=== PATIENT | female | born 1930 | race Caucasian/White ===

== ENCOUNTER 2019-10-20 17:34 | Emergency (ER) | payer MEDICARE ==
--- NOTE | 2019-10-20 17:44 | ED ---
Dizziness - HPI Summary HPI Summary: 89 year old F presenting to [facility] via EMS with a chief complaint of dizziness which she describes as blurry vision and double vision that lasted hours since earlier today. The patient rates the pain 0/10 in severity. Symptoms aggravated by nothing. Symptoms alleviated by nothing. Patient reports that she went to sleep and woke up with dizziness. Patient denies any weakness, numbness, chest pain, or tingling. Medication list reviewed. Allergy list reviewed. Home Medications Medication Instructions Recorded Confirmed Type Acetaminophen [Tylenol] 500 mg PO PRN 08/11/12 05/23/14 History Calcium Carbonate/Vitamin D3 1 tab PO QAM 08/11/12 04/13/16 History [Calcium + D] Quinapril HCl 10 mg PO BEDTIME 08/11/12 04/13/16 History Sotalol TAB* [Betapace*] 80 mg PO BID 08/11/12 05/23/14 History Warfarin TAB(*) [Coumadin(*)] 2.5 mg PO SUMOWEFR 08/11/12 05/23/14 History Warfarin TAB(*) [Coumadin(*)] 5 mg PO TUTHSA 08/11/12 04/13/16 History Cyanocobalamin [Vitamin B-12] 500 mcg PO SEE INSTRUCTIONS 04/13/16 04/13/16 History - History Of Current Complaint Stated Complaint: DIZZYNESS PER EMS Time Seen by Provider: 10/20/19 17:37 Hx Obtained From: Patient, EMS Onset/Duration: Suddenly Timing: Constant Character: Dizzy Aggravating Factor(s): Nothing Alleviating Factor(s): Nothing Associated Signs And Symptoms: Positive: Negative - Weakness, numbness, tingling , Other: - Blurry vision, double vision. Negative: Chest Pain - Allergies/Home Medications Allergies/Adverse Reactions: Allergies Allergy/AdvReac Type Severity Reaction Status Date / Time No Known Allergies Allergy Verified 04/13/16 10:31 Home Medications: Home Medications Acetaminophen [Tylenol] 500 mg PO PRN 08/11/12 [History Confirmed 05/23/14] Calcium Carbonate/Vitamin D3 [Calcium + D] 1 tab PO QAM 08/11/12 [History Confirmed 04/13/16] Quinapril HCl 10 mg PO BEDTIME 08/11/12 [History Confirmed 04/13/16] Sotalol TAB* [Betapace*] 80 mg PO BID 08/11/12 [History Confirmed 05/23/14] Warfarin TAB(*) [Coumadin(*)] 2.5 mg PO SUMOWEFR 08/11/12 [History Confirmed ] Warfarin TAB(*) [Coumadin(*)] 5 mg PO TUTHSA 08/11/12 [History Confirmed ] Cyanocobalamin [Vitamin B-12] 500 mcg PO SEE INSTRUCTIONS 04/13/16 [History Confirmed 04/13/16] PMH/Surg Hx/FS Hx/Imm Hx Endocrine/Hematology History: Denies: Hx Diabetes Cardiovascular History: Reports: Hx Hypertension - medication used for many years, BP well controlled, Hx Pacemaker/ICD - PACER AND DEFIB, 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 2005 TOTAL KNEE CAP INSPECTOR. 2009 CATARACTS CAP INSPECTOR. BASAL CELL CAP INSPECTOR AND STRONG Hx Anesthesia Reactions: No - Family History Known Family History: Negative: Hypertension, Diabetes - Social History Alcohol Use: None Substance Use Type: Reports: None Hx Tobacco Use: No Smoking Status (MU): Never Smoked Tobacco Review of Systems Positive: Blurred Vision, Other - Double vision Negative: Chest Pain Neurological/Mental Status: Other - Dizziness Negative: Weakness, Paresthesia, Numbness All Other Systems Reviewed And Are Negative: Yes Physical Exam - Summary Physical Exam Summary: Constitutional: Well-developed, Well-nourished, Alert. 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 Neck: Musculoskeletal ROM normal neck. (-) JVD, (-) Stridor, (-) Tracheal deviation Cardio: Rhythm regular, rate normal, Heart sounds normal; Intact distal pulses; Radial pulses are 2+ and symmetric. (-) Murmur Pulmonary/Chest wall: Effort normal. (-) Respiratory distress, (-) Wheezes, (-) Rales Abd: Soft, (-) tenderness, (-) Distension, (-) Guarding, (-) Rebound Musculoskeletal: (-) Edema Lymph: (-) Cervical adenopathy Neuro: Alert, Oriented x3 Psych: Mood and affect Normal Triage Information Reviewed: Yes Vital Signs Reviewed: Yes Procedures - Sedation Patient Received Moderate/Deep Sedation with Procedure: No Diagnostics - Laboratory Result Diagrams: 10/20/19 17:56 10/20/19 17:56 Lab Statement: Any lab studies that have been ordered have been reviewed, and results considered in the medical decision making process. - CT Brain CT CT Interpretation Completed By: Radiologist Summary of CT Findings: 1. There is age-related diffuse cerebral and cerebellar volume loss and chronic. microvascular ischemic disease. There is a small focus of encephalomalacia in. the left frontal lobe consistent with chronic infarct. 2. No acute intracranial pathology. ED physician has reviewed this report. - EKG 18:01 Cardiac Rate: NL - 94 BPM Summary of EKG Findings: Paced rhythm, no obvious abnormalities. ED physician has reviewed and interpreted this EKG. Re-Evaluation - Re-Evaluation First Eval Re-Evaluation Time: 18:35 Change: Improved Comment: After 1 dose of Labetalol the patient's blood pressure is 170/95. Dizzy Course/Dx - Course Course Of Treatment: Patient is here with elevated blood pressure and symptoms of dizziness. Patient states she feels much better by the time she got to the emergency department. Patient had a normal neurologic exam with an NIH stroke scale of 0. Patient had blood work performed which is grossly unremarkable. Patient had an EKG which showed no evidence of ischemia. Patient's CT brain which was negative for any abnormality. The patient describes her symptoms, she describes binocular vision which improves when she closes one eye. Patient is likely suffering from an intrinsic eye issue and was referred to ophthalmology. She was given 1 dose of labetalol to improvement in her blood pressure. Patient will follow up with her primary care doctor for blood pressure recheck and possible starting of medications. 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, Hypertension Discharge ED - Sign-Out/Discharge Documenting (check all that apply): Patient Departure - Discharge Plan Condition: Stable Disposition: HOME Patient Education Materials: Diplopia (ED), Hypertension in the Older Adult (ED ) Referrals: Chava Engle MD [Medical Doctor] - Neyda Gold MD [Primary Care Provider] - Additional Instructions: You need to have your blood pressure rechecked within 1 week to see if you need to start medicine Please follow up with your primary care doctor in 1-3 days Please call the seed buyer to set up an appointment Please return if you have one sided weakness, difficulty walking, one sided numbness, your face appears to be drooping, you have slurred speech, or any other concerning symptoms - Billing Disposition and Condition Condition: STABLE Disposition: Home - Attestation Statements Document Initiated by Nadir: Yes Documenting Scribe: Lily Mosqueda Provider For Whom Nadir is Documenting (Include Credential): Gaurav Garcia MD Scribe Attestation: Lily Wyatt scribed for Gaurav Garcia MD on 10/20/19 at 1848. Scribe Documentation Reviewed: Yes Provider Attestation: The documentation as recorded by the Lily valenzuela accurately reflects the service I personally performed and the decisions made by me, Gaurav Garcia MD Status of Scribe Document: Viewed
[2019-10-20] MEDS ORDERED: Labetalol IV* 5 MG/ML 20 ML VIAL IV PUSH ONE (17:47)
[2019-10-20 18:14] LABS: ABS Basophils 0.1 10^3/ul (0-0.2); ABS Eosinophils 0.3 10^3/ul (0-0.6); ABS Lymphocytes 1.4 10^3/ul (1.0-4.8); ABS Monocytes 0.6 10^3/ul (0-0.8); Eosinophil % 3.7 %; Hematocrit 41 % (35-47); Hemoglobin 14.4 g/dL (12.0-16.0); Lymphocyte % 16.4 %; Mean Corpuscular HGB Conc 35 g/dL (31-36); Mean Corpuscular Hemoglobin 32 pg (27-31); Mean Corpuscular Volume 92 fL (80-97); Mean Platelet Volume 8.1 fL (7.4-10.4); Platelet Count 171 10^3/uL (150-450); Red Blood Count 4.48 10^6 /uL (3.70-4.87); Red Cell Distribution Width 14 % (10-15); White Blood Count 8.3 10^3/uL (3.5-10.8)
--- OUTSIDE RECORDS SUMMARY | 2019-10-20 18:14 | XMS REPORT | Continuity of Care Document ---
:1930 External Reference #:[id number] Author Name [facility] (transmitted by agent of provider Claudia Pinon) Address [address] [id number] Problems Description No Information Available Social History Type Date Description Comments Sex Unknown Allergies, Adverse Reactions, Alerts Description No Known Drug Allergies Medications Active Medications SIG Qnty Indications Ordering Date Provider Shingrix Take one Z11.59 Phillip 07/28/2019 injection MD Latoya intramuscularly, repeat in two months. Warfarin Sodium 1 tab by mouth 90tabs Z95.2 Phillip 07/28/2019 2.5mg every day as MD Latoya Tablets directed Diclofenac Sodium apply 4 grams to 200gm Shannon Tadeo, 04/19/2018 1% knees 4 times SCREW DOWN Gel daily. do not exceed 16 grams daily. Warfarin Sodium 1 tab by mouth 90tabs Phillip 5mg every day MD Latoya Tablets Sotalol HCL 1 tablet by mouth 180tabs Phillip 80mg twice daily MD Latoya Tablets Quinapril HCL Take One Tablet 90tabs Shannon Piedra, 10mg By Mouth Every SCREW DOWN Tablets Day Citracal +D3 1 by mouth every 180units Unknown day [id number] t Chewtabs Ipratropium Drumore spray one to two 30units Shannon Piedra, sprays in both SCREW DOWN 0.03% Solution nostrils three times a day as needed Align 1 by mouth every Unknown 4mg Capsules day as directed Biotin 10,000mcg 1 po daily Unknown Tylenol Extra 2 tab by mouth Unknown Strength every 6 hours as 500mg needed Tablets Medications Administered in Office Medication SIG Qnty Indications Ordering Provider Date Injection, Depo-Medrol 40MG Phillip Klein MD 07/28/2019 Injection Immunizations CPT Code Status Date Vaccine Lot # [id number] Given 04/13/2019 Influenza Vaccine High Dose PF [id number] Given 04/11/2018 Influenza Vaccine High Dose PF Vital Signs Date Vital Result Comment 07/28/2019 11:51am Weight 112.00 lb Weight 50.803 kg BP Systolic 110 mmHg BP Diastolic 60 mmHg Heart Rate 56 /min Body Temperature 97.7 F Respiratory Rate 20 /min 11/23/2018 9:28am Weight 110.12 lb Weight 49.953 kg BP Systolic 114 mmHg BP Diastolic 60 mmHg Heart Rate 74 /min Body Temperature 97.4 F Respiratory Rate 16 /min Height 59 inches 4'11" BMI (Body Mass Index) 22.2 kg/m2 O2 % BldC Oximetry 98 % Results Test Acquired Date Facility Test Result H/L Range Note Inr/Protime 09/27/2019 [facility] Inr 3.06 High 0.82-1.09 7 [phone] Inr/Protime 09/21/2019 [facility] Inr 2.36 High 0.82-1.09 2 [phone] Inr/Protime 09/13/2019 [facility] Inr 2.61 High 0.82-1.09 3 [phone] Inr/Protime 09/06/2019 [facility] Inr 2.17 High 0.82-1.09 4 [phone] Inr/Protime 08/31/2019 [facility] Inr 2.04 High 0.82-1.09 5 [phone] Inr/Protime 08/23/2019 [facility] Inr 2.69 High 0.82-1.09 6 [phone] Inr/Protime 08/17/2019 [facility] Inr 4.23 High 0.82-1.09 7 [phone] Inr/Protime 08/09/2019 [facility] Inr 4.13 High 0.82-1.09 8 [phone] Urine DIP 07/28/2019 In House Lab Leukocytes neg Neg ([phone] - Urine Nitrites neg Neg Urobilinogen norm Norm Total Protein Urine neg Neg Urine pH 7 High 5-6 Urine Blood 1+ High Neg Specific [place] 1.010 1.01-1.02 Urine Ketones neg Neg Urine Bilirubin neg Neg Urine Glucose norm Norm Inr/Protime 07/28/2019 [facility] Inr 2.11 High 0.82-1.09 9 [phone] Inr/Protime 07/17/2019 [facility] Inr 3.72 High 0.82-1.09 10 [phone] Inr/Protime 06/20/2019 [facility] Inr 2.74 High 0.82-1.09 11 [phone] Inr/Protime 06/07/2019 [facility] Inr 2.72 High 0.82-1.09 12 [phone] Inr/Protime 05/31/2019 [facility] Inr 2.38 High 0.82-1.09 13 [phone] Inr/Protime 05/24/2019 [facility] Inr 2.26 High 0.82-1.09 14 [phone] Inr/Protime 05/18/2019 [facility] Inr 3.16 High 0.82-1.09 15 [phone] Inr/Protime 05/11/2019 [facility] Inr 1.81 High 0.82-1.09 16 [phone] Inr/Protime 05/04/2019 [facility] Inr 1.61 High 0.82-1.09 17 [phone] Inr/Protime 04/27/2019 [facility] Inr 1.86 High 0.82-1.09 18 [phone] Inr/Protime 04/13/2019 [facility] Inr 3.04 High 0.82-1.09 19 [phone] Standard intensity warfarin therapeutic range: 2.0-3.0 High intensity warfarin therapeutic range: 2.5-3.5 2 Standard intensity warfarin therapeutic range: 2.0-3.0 High intensity warfarin therapeutic range: 2.5-3.5 3 Standard intensity warfarin therapeutic range: 2.0-3.0 High intensity warfarin therapeutic range: 2.5-3.5 4 Standard intensity warfarin therapeutic range: 2.0-3.0 High intensity warfarin therapeutic range: 2.5-3.5 5 Standard intensity warfarin therapeutic range: 2.0-3.0 High intensity warfarin therapeutic range: 2.5-3.5 6 Standard intensity warfarin therapeutic range: 2.0-3.0 High intensity warfarin therapeutic range: 2.5-3.5 7 Standard intensity warfarin therapeutic range: 2.0-3.0 High intensity warfarin therapeutic range: 2.5-3.5 8 Standard intensity warfarin therapeutic range: 2.0-3.0 High intensity warfarin therapeutic range: 2.5-3.5 9 Standard intensity warfarin therapeutic range: 2.0-3.0 High intensity warfarin therapeutic range: 2.5-3.5 10 Standard intensity warfarin therapeutic range: 2.0-3.0 High intensity warfarin therapeutic range: 2.5-3.5 11 Standard intensity warfarin therapeutic range: 2.0-3.0 High intensity warfarin therapeutic range: 2.5-3.5 12 Standard intensity warfarin therapeutic range: 2.0-3.0 High intensity warfarin therapeutic range: 2.5-3.5 13 Standard intensity warfarin therapeutic range: 2.0-3.0 High intensity warfarin therapeutic range: 2.5-3.5 14 Standard intensity warfarin therapeutic range: 2.0-3.0 High intensity warfarin therapeutic range: 2.5-3.5 15 Standard intensity warfarin therapeutic range: 2.0-3.0 High intensity warfarin therapeutic range: 2.5-3.5 16 Standard intensity warfarin therapeutic range: 2.0-3.0 High intensity warfarin therapeutic range: 2.5-3.5 17 Standard intensity warfarin therapeutic range: 2.0-3.0 High intensity warfarin therapeutic range: 2.5-3.5 18 Standard intensity warfarin therapeutic range: 2.0-3.0 High intensity warfarin therapeutic range: 2.5-3.5 19 Standard intensity warfarin therapeutic range: 2.0-3.0 High intensity warfarin therapeutic range: 2.5-3.5 Procedures Date Code Description Status 09/27/2019 88620 Anticoagulant MGMT For Patient Taking Warfarin, Inc Review Completed & Intr 09/21/2019 06389 Anticoagulant MGMT For Patient Taking Warfarin, Inc Review Completed & Intr 09/13/2019 61225 Anticoagulant MGMT For Patient Taking Warfarin, Inc Review Completed & Intr 08/31/2019 58159 Anticoagulant MGMT For Patient Taking Warfarin, Inc Review Completed & Intr 08/23/2019 07600 Anticoagulant MGMT For Patient Taking Warfarin, Inc Review Completed & Intr 08/17/2019 34491 Anticoagulant MGMT For Patient Taking Warfarin, Inc Review Completed & Intr 08/09/2019 28252 Anticoagulant MGMT For Patient Taking Warfarin, Inc Review Completed & Intr 07/28/2019 90369 Aspiration/Injection Intermediate Joint, Bursa, Ganglion Completed Cyst 07/17/2019 51621 Anticoagulant MGMT For Patient Taking Warfarin, Inc Review Completed & Intr 06/20/2019 42695 Anticoagulant MGMT For Patient Taking Warfarin, Inc Review Completed & Intr 06/07/2019 81834 Anticoagulant MGMT For Patient Taking Warfarin, Inc Review Completed & Intr 05/31/2019 42910 Anticoagulant MGMT For Patient Taking Warfarin, Inc Review Completed & Intr 05/24/2019 24751 Anticoagulant MGMT For Patient Taking Warfarin, Inc Review Completed & Intr 05/18/2019 49471 Anticoagulant MGMT For Patient Taking Warfarin, Inc Review Completed & Intr 05/11/2019 19063 Anticoagulant MGMT For Patient Taking Warfarin, Inc Review Completed & Intr 05/04/2019 64366 Anticoagulant MGMT For Patient Taking Warfarin, Inc Review Completed & Intr 04/27/2019 98879 Anticoagulant MGMT For Patient Taking Warfarin, Inc Review Completed & Intr 04/13/2019 78287 Anticoagulant MGMT For Patient Taking Warfarin, Inc Review Completed & Intr Medical Devices Description No Information Available Encounters Type Date Location Provider Dx Diagnosis Office Visit 07/28/2019 Main Office Alida Valerio11.59 Encounter for 11:45a screening for other viral diseases Z95.2 Presence of prosthetic heart valve M70.62 Trochanteric bursitis, left hip 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 of other heart-valve replacement Assessments Date Code Description Provider 10/11/2019 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 of other heart-valve replacement [facility] 09/27/2019 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 of other heart-valve replacement Phillip Klein MD 09/27/2019 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 of other heart-valve replacement [facility] 09/21/2019 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 of other heart-valve replacement Phillip Klein MD 09/21/2019 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 of other heart-valve replacement [facility] 09/13/2019 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 of other heart-valve replacement Phillip Klein MD 09/13/2019 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 of other heart-valve replacement [facility] 09/06/2019 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 of other heart-valve replacement Phillip Klein MD 09/06/2019 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 of other heart-valve replacement [facility] 08/31/2019 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 of other heart-valve replacement Phillip Klein MD 08/31/2019 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 of other heart-valve replacement [facility] 08/23/2019 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 of other heart-valve replacement Phillip Klein MD 08/23/2019 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 of other heart-valve replacement [facility] 08/17/2019 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 of other heart-valve replacement Phillip Klein MD 08/17/2019 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 of other heart-valve replacement [facility] 08/09/2019 Z95.2 Presence of prosthetic heart valve Phillip Klein MD 08/09/2019 Z95.2 Presence of prosthetic heart valve [facility] 07/28/2019 Z11.59 Encounter for screening for other viral Phillip Klein MD diseases 07/28/2019 Z95.2 Presence of prosthetic heart valve Phillip Klein MD 07/28/2019 M70.62 Trochanteric bursitis, left hip Phillip Klein MD 07/28/2019 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 of other heart-valve replacement Phillip Klein MD 07/17/2019 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 of other heart-valve replacement Phillip Klein MD 07/17/2019 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 of other heart-valve replacement [facility] 06/20/2019 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 of other heart-valve replacement Phillip Klein MD 06/20/2019 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 of other heart-valve replacement [facility] 06/07/2019 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 of other heart-valve replacement Phillip Klein MD 06/07/2019 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 of other heart-valve replacement [facility] 05/31/2019 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 of other heart-valve replacement Phillip Klein MD 05/31/2019 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 of other heart-valve replacement [facility] 05/24/2019 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 of other heart-valve replacement Phillip Klein MD 05/18/2019 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 of other heart-valve replacement Phillip Klein MD 05/18/2019 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 of other heart-valve replacement [facility] 05/11/2019 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 of other heart-valve replacement Phillip Klein MD 05/11/2019 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 of other heart-valve replacement [facility] 05/04/2019 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 of other heart-valve replacement Phillip Klein MD 05/04/2019 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 of other heart-valve replacement [facility] 04/27/2019 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 of other heart-valve replacement Phillip Klein MD 04/27/2019 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 of other heart-valve replacement [facility] 04/13/2019 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 of other heart-valve replacement Phillip Klein MD 04/13/2019 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 of other heart-valve replacement [facility] 04/13/2019 Z23 Encounter for immunization Phillip Klein MD Plan of Treatment 07/28/2019 - Phillip Klein MDZ11.59 Encounter for screening for other viral diseasesNew Medication:Shingrix - Take one injection intramuscularly, repeat in two months.Comments:Wants shingrix. Provided with paper script.Z95.2 Presence of prosthetic heart valveNew Medication:Warfarin Sodium 2.5 mg - 1 tab by mouth every day as directedComments:INR check today. REfilled warfarin.M70.62 Trochanteric bursitis, left hipComments:Discussion of risks ( incl skin atrophy) and benefits. Injected L trochanteric bursa with 1 ml of 40 mg/ml depomedrol and 3 ml of lidocaine with epinephrine. Withdrew needle under negative pressure. Tolerated well.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 of other heart-valve replacement Functional Status Description No Information Available Mental Status Description No Information Available Referrals Description No Information Available
--- OUTSIDE RECORDS SUMMARY | 2019-10-20 18:14 | XMS REPORT | Continuity of Care Document ---
:1930 External Reference #:[id number] Author Name [facility] (transmitted by agent of provider Elodia Schwab) Address [address] [id number] Problems Description No Information Available Social History [...] Shannon Tadeo, 04/19/2018 1% knees 4 times SENIOR FINANCE MANAGER Gel daily. do not exceed 16 grams daily. Warfarin Sodium 1 tab by mouth 90tabs Phillip 5mg every day MD Latoya Tablets Sotalol HCL 1 tablet by mouth 180tabs Phillip 80mg twice daily MD Latoya Tablets Quinapril HCL Take One Tablet 90tabs Shannon Piedra, 10mg By Mouth Every SENIOR FINANCE MANAGER Tablets Day Citracal +D3 1 by mouth every 180units Unknown day [id number]-mg-Uni t Chewtabs Ipratropium [place] spray one to two 30units Shannon Piedra, sprays in both SENIOR FINANCE MANAGER 0.03% Solution nostrils three times a day [...] CPT Code Status Date Vaccine Lot # [id number] Given 04/13/2019 Influenza Vaccine High Dose PF [id number] Given 04/11/2018 Influenza Vaccine High Dose PF [...] Facility Test Result H/L Range Note Inr/Protime 10/11/2019 [facility] Inr 3.22 High 0.82-1.09 7 [phone] Inr/Protime 09/27/2019 [facility] Inr 3.06 High 0.82-1.09 2 [phone] Inr/Protime 09/21/2019 [facility] Inr 2.36 High 0.82-1.09 3 [phone] Inr/Protime 09/13/2019 [facility] Inr 2.61 High 0.82-1.09 4 [phone] Inr/Protime 09/06/2019 [facility] Inr 2.17 High 0.82-1.09 5 [phone] Inr/Protime 08/31/2019 [facility] Inr 2.04 High 0.82-1.09 6 [phone] Inr/Protime 08/23/2019 [facility] Inr 2.69 High 0.82-1.09 7 [phone] Inr/Protime 08/17/2019 [facility] Inr 4.23 High 0.82-1.09 8 [phone] Inr/Protime 08/09/2019 [facility] Inr 4.13 High 0.82-1.09 9 [phone] Urine DIP 07/28/2019 In House Lab Leukocytes neg Neg (607)- - Urine Nitrites neg Neg Urobilinogen norm Norm Total Protein Urine neg Neg Urine pH 7 High 5-6 Urine Blood 1+ High Neg Specific [place] 1.010 1.01-1.02 Urine Ketones neg Neg Urine Bilirubin neg Neg Urine Glucose norm Norm Inr/Protime 07/28/2019 [facility] Inr 2.11 High 0.82-1.09 10 [phone] Inr/Protime 07/17/2019 [facility] Inr 3.72 High 0.82-1.09 11 [phone] Inr/Protime 06/20/2019 [facility] Inr 2.74 High 0.82-1.09 12 [phone] Inr/Protime 06/07/2019 [facility] Inr 2.72 High 0.82-1.09 13 [phone] Inr/Protime 05/31/2019 [facility] Inr 2.38 High 0.82-1.09 14 [phone] Inr/Protime 05/24/2019 [facility] Inr 2.26 High 0.82-1.09 15 [phone] Inr/Protime 05/18/2019 [facility] Inr 3.16 High 0.82-1.09 16 [phone] Inr/Protime 05/11/2019 [facility] Inr 1.81 High 0.82-1.09 17 [phone] Inr/Protime 05/04/2019 [facility] Inr 1.61 High 0.82-1.09 18 [phone] Inr/Protime 04/27/2019 [facility] Inr 1.86 High 0.82-1.09 19 [phone] Standard intensity warfarin therapeutic range: 2.0-3.0 [...] range: 2.5-3.5 Procedures Date Code Description Status 10/11/2019 35715 Anticoagulant MGMT For Patient Taking Warfarin, Inc Review Completed & Intr 09/27/2019 88466 Anticoagulant MGMT For Patient Taking Warfarin, Inc Review Completed & Intr 09/21/2019 25472 Anticoagulant MGMT For Patient Taking Warfarin, Inc Review Completed & Intr 09/13/2019 13375 Anticoagulant MGMT For Patient Taking Warfarin, Inc Review Completed & Intr 08/31/2019 78877 Anticoagulant MGMT For Patient Taking Warfarin, Inc Review Completed & Intr 08/23/2019 77662 Anticoagulant MGMT For Patient Taking Warfarin, Inc Review Completed & Intr 08/17/2019 83977 Anticoagulant MGMT For Patient Taking Warfarin, Inc Review Completed & Intr 08/09/2019 62988 Anticoagulant MGMT For Patient Taking Warfarin, Inc Review Completed & Intr 07/28/2019 18234 Aspiration/Injection Intermediate Joint, Bursa, Ganglion Completed Cyst 07/17/2019 74630 Anticoagulant MGMT For Patient Taking Warfarin, Inc Review Completed & Intr 06/20/2019 18258 Anticoagulant MGMT For Patient Taking Warfarin, Inc Review Completed & Intr 06/07/2019 95570 Anticoagulant MGMT For Patient Taking Warfarin, Inc Review Completed & Intr 05/31/2019 53282 Anticoagulant MGMT For Patient Taking Warfarin, Inc Review Completed & Intr 05/24/2019 97349 Anticoagulant MGMT For Patient Taking Warfarin, Inc Review Completed & Intr 05/18/2019 79656 Anticoagulant MGMT For Patient Taking Warfarin, Inc Review Completed & Intr 05/11/2019 98230 Anticoagulant MGMT For Patient Taking Warfarin, Inc Review Completed & Intr 05/04/2019 84100 Anticoagulant MGMT For Patient Taking Warfarin, Inc Review Completed & Intr 04/27/2019 75151 Anticoagulant MGMT For Patient Taking Warfarin, Inc [...] 10/11/2019 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 of other heart-valve replacement Phillip Klein MD 10/11/2019 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 of other heart-valve replacement [...] other heart-valve replacement [facility] Plan of Treatment Future Appointment(s):10/25/2019 9:40 am - [facility] at Main Racnru2707/28/2019 - Phillip Klein MDZ11.59 Encounter for screening [...]
--- OUTSIDE RECORDS SUMMARY | 2019-10-20 18:15 | XMS REPORT | Continuity of Care Document ---
:1930 External Reference #:[id number] Author Name [facility] (transmitted by agent of provider Elodia Schwab) Address [address] [id number] Problems Description No Information Available Social History [...] Shannon Tadeo, 04/19/2018 1% knees 4 times SECRETARY RECEPTIONIST Gel daily. do not exceed 16 grams daily. Warfarin Sodium 1 tab by mouth 90tabs Phillip 5mg every day MD Latoya Tablets Sotalol HCL 1 tablet by mouth 180tabs Phillip 80mg twice daily MD Latoya Tablets Quinapril HCL Take One Tablet 90tabs Shannon Piedra, 10mg By Mouth Every SECRETARY RECEPTIONIST Tablets Day Citracal +D3 1 by mouth every 180units Unknown day [id number]-mg-Uni t Chewtabs Ipratropium [place] spray one to two 30units Shannon Piedra, sprays in both SECRETARY RECEPTIONIST 0.03% Solution nostrils three times a day [...] CPT Code Status Date Vaccine Lot # [id number] Given 04/13/2019 Influenza Vaccine High Dose PF [id number] Given 04/11/2018 Influenza Vaccine High Dose PF [...] Facility Test Result H/L Range Note Inr/Protime 09/21/2019 [facility] Inr 2.36 High 0.82-1.09 8 [phone] Inr/Protime 09/13/2019 [facility] Inr 2.61 High 0.82-1.09 2 [phone] Inr/Protime 09/06/2019 [facility] Inr 2.17 High 0.82-1.09 3 [phone] Inr/Protime 08/31/2019 [facility] Inr 2.04 High 0.82-1.09 4 [phone] Inr/Protime 08/23/2019 [facility] Inr 2.69 High 0.82-1.09 5 [phone] Inr/Protime 08/17/2019 [facility] Inr 4.23 High 0.82-1.09 6 [phone] Inr/Protime 08/09/2019 [facility] Inr 4.13 High 0.82-1.09 7 [phone] Inr/Protime 07/28/2019 [facility] Inr 2.11 High 0.82-1.09 8 [phone] Urine DIP 07/28/2019 In House Lab Leukocytes neg Neg (607)- - Urine Nitrites neg Neg Urobilinogen norm Norm Total Protein Urine neg Neg Urine pH 7 High 5-6 Urine Blood 1+ High Neg Specific [place] 1.010 1.01-1.02 Urine Ketones neg Neg Urine Bilirubin neg Neg Urine Glucose norm Norm Inr/Protime 07/17/2019 [facility] Inr 3.72 High 0.82-1.09 9 [phone] Inr/Protime 06/20/2019 [facility] Inr 2.74 High 0.82-1.09 10 [phone] Inr/Protime 06/07/2019 [facility] Inr 2.72 High 0.82-1.09 11 [phone] Inr/Protime 05/31/2019 [facility] Inr 2.38 High 0.82-1.09 12 [phone] Inr/Protime 05/24/2019 [facility] Inr 2.26 High 0.82-1.09 13 [phone] Inr/Protime 05/18/2019 [facility] Inr 3.16 High 0.82-1.09 14 [phone] Inr/Protime 05/11/2019 [facility] Inr 1.81 High 0.82-1.09 15 [phone] Inr/Protime 05/04/2019 [facility] Inr 1.61 High 0.82-1.09 16 [phone] Inr/Protime 04/27/2019 [facility] Inr 1.86 High 0.82-1.09 17 [phone] Inr/Protime 04/13/2019 [facility] Inr 3.04 High 0.82-1.09 18 [phone] Inr/Protime 04/06/2019 [facility] Inr 3.04 High 0.82-1.09 19 [phone] Inr/Protime 03/30/2019 [facility] Inr 3.25 High 0.82-1.09 20 [phone] Inr/Protime 03/23/2019 [facility] Inr 4.36 High 0.82-1.09 21 [phone] Standard intensity warfarin therapeutic range: 2.0-3.0 [...] 2.0-3.0 High intensity warfarin therapeutic range: 2.5-3.5 20 Standard intensity warfarin therapeutic range: 2.0-3.0 High intensity warfarin therapeutic range: 2.5-3.5 21 Standard intensity warfarin therapeutic range: 2.0-3.0 High intensity warfarin therapeutic range: 2.5-3.5 Procedures Date Code Description Status 09/21/2019 79029 Anticoagulant MGMT For Patient Taking Warfarin, Inc Review Completed & Intr 09/13/2019 47826 Anticoagulant MGMT For Patient Taking Warfarin, Inc Review Completed & Intr 08/31/2019 75681 Anticoagulant MGMT For Patient Taking Warfarin, Inc Review Completed & Intr 08/23/2019 36710 Anticoagulant MGMT For Patient Taking Warfarin, Inc Review Completed & Intr 08/17/2019 02855 Anticoagulant MGMT For Patient Taking Warfarin, Inc Review Completed & Intr 08/09/2019 31032 Anticoagulant MGMT For Patient Taking Warfarin, Inc Review Completed & Intr 07/28/2019 66770 Aspiration/Injection Intermediate Joint, Bursa, Ganglion Completed Cyst 07/17/2019 07318 Anticoagulant MGMT For Patient Taking Warfarin, Inc Review Completed & Intr 06/20/2019 40979 Anticoagulant MGMT For Patient Taking Warfarin, Inc Review Completed & Intr 06/07/2019 95397 Anticoagulant MGMT For Patient Taking Warfarin, Inc Review Completed & Intr 05/31/2019 84573 Anticoagulant MGMT For Patient Taking Warfarin, Inc Review Completed & Intr 05/24/2019 15583 Anticoagulant MGMT For Patient Taking Warfarin, Inc Review Completed & Intr 05/18/2019 19342 Anticoagulant MGMT For Patient Taking Warfarin, Inc Review Completed & Intr 05/11/2019 59419 Anticoagulant MGMT For Patient Taking Warfarin, Inc Review Completed & Intr 05/04/2019 20670 Anticoagulant MGMT For Patient Taking Warfarin, Inc Review Completed & Intr 04/27/2019 51350 Anticoagulant MGMT For Patient Taking Warfarin, Inc Review Completed & Intr 04/13/2019 58606 Anticoagulant MGMT For Patient Taking Warfarin, Inc Review Completed & Intr 04/06/2019 70427 Anticoagulant MGMT For Patient Taking Warfarin, Inc Review Completed & Intr 03/30/2019 51615 Anticoagulant MGMT For Patient Taking Warfarin, Inc Review Completed & Intr 03/23/2019 91777 Anticoagulant MGMT For Patient Taking Warfarin, Inc Review Completed & Intr Medical Devices Description No Information Available Encounters Type Date Location Provider Dx Diagnosis Office Visit 07/28/2019 Main Office Phillip Klein Z11.59 Encounter for 11:45a screening for other viral diseases Z95.2 Presence of prosthetic heart valve M70.62 Trochanteric bursitis, left hip 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 of other heart-valve replacement Assessments Date Code Description Provider 09/21/2019 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 of other heart-valve replacement [...] 06/07/2019 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 of other heart-valve replacement Pihllip Klein MD 06/07/2019 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 of other [...] and Office Services 04/13/2019 Z23 Encounter for adeel Klein MD 04/06/2019 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 of other heart-valve replacement Phillip Klein MD 04/06/2019 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 of other heart-valve replacement [facility] 03/30/2019 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 of other heart-valve replacement Phillip Klein MD 03/30/2019 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 of other heart-valve replacement [facility] 03/23/2019 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 of other heart-valve replacement Phillip Klein MD 03/23/2019 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 of other heart-valve replacement [facility] Plan of Treatment Future Appointment(s):09/27/2019 9:40 am - [facility] Main [place]5607/28/2019 - Phillip Klein MDZ11.59 Encounter for screening [...]
--- OUTSIDE RECORDS SUMMARY | 2019-10-20 18:15 | XMS REPORT | Continuity of Care Document ---
:1930 External Reference #:[id number] Author Name [facility] (transmitted by agent of provider Elodia Schwab) Address [address] [id number] Problems Description No Information Available Social History [...] Shannon Tadeo, 04/19/2018 1% knees 4 times ASSOCIATE PROFESSOR OF MATHEMATICS Gel daily. do not exceed 16 grams daily. Warfarin Sodium 1 tab by mouth 90tabs Phillip 5mg every day MD Latoya Tablets Sotalol HCL 1 tablet by mouth 180tabs Phillip 80mg twice daily MD Latoya Tablets Quinapril HCL Take One Tablet 90tabs Shannno Piedra, 10mg By Mouth Every ASSOCIATE PROFESSOR OF MATHEMATICS Tablets Day Citracal +D3 1 by mouth every 180units Unknown day [id number]-mg-Uni t Chewtabs Ipratropium [place] spray one to two 30units Shannon Piedra, sprays in both ASSOCIATE PROFESSOR OF MATHEMATICS 0.03% Solution nostrils three times a day [...] CPT Code Status Date Vaccine Lot # [id number] Given 04/13/2019 Influenza Vaccine High Dose PF [id number] Given 04/11/2018 Influenza Vaccine High Dose PF [...] Test Result H/L Range Note Inr/Protime 09/27/2019 [facility] Inr 3.06 High 0.82-1.09 4 [phone] Inr/Protime 09/21/2019 [facility] Inr 2.36 High 0.82-1.09 2 [phone] Inr/Protime 09/13/2019 [facility] Inr 2.61 High 0.82-1.09 3 [phone] Inr/Protime 09/06/2019 [facility] Inr 2.17 High 0.82-1.09 4 [phone] Inr/Protime 08/31/2019 [facility] Inr 2.04 High 0.82-1.09 5 [phone] Inr/Protime 08/23/2019 [facility] Inr 2.69 High 0.82-1.09 6 [phone] Inr/Protime 08/17/2019 [facility] Inr 4.23 High 0.82-1.09 7 [phone] Inr/Protime 08/09/2019 [facility] Inr 4.13 High 0.82-1.09 8 [phone] Inr/Protime 07/28/2019 [facility] Inr 2.11 High 0.82-1.09 9 [phone] Urine DIP 07/28/2019 In House Lab Leukocytes neg Neg (607)- - Urine Nitrites neg Neg Urobilinogen norm Norm Total Protein Urine neg Neg Urine pH 7 High 5-6 Urine Blood 1+ High Neg Specific [place] 1.010 1.01-1.02 Urine Ketones neg Neg Urine Bilirubin neg Neg Urine Glucose norm Norm Inr/Protime 07/17/2019 [facility] Inr 3.72 High 0.82-1.09 10 [phone] Inr/Protime 06/20/2019 [facility] Inr 2.74 High 0.82-1.09 11 [phone] Inr/Protime 06/07/2019 [facility] Inr 2.72 High 0.82-1.09 12 [phone] Inr/Protime 05/31/2019 [facility] Inr 2.38 High 0.82-1.09 13 [phone] Inr/Protime 05/24/2019 [facility] Inr 2.26 High 0.82-1.09 14 [phone] Inr/Protime 05/18/2019 [facility] Inr 3.16 High 0.82-1.09 15 [phone] Inr/Protime 05/11/2019 [facility] Inr 1.81 High 0.82-1.09 16 [phone] Inr/Protime 05/04/2019 [facility] Inr 1.61 High 0.82-1.09 17 [phone] Inr/Protime 04/27/2019 [facility] Inr 1.86 High 0.82-1.09 18 [phone] Inr/Protime 04/13/2019 [facility] Inr 3.04 High 0.82-1.09 19 [phone] Inr/Protime 04/06/2019 [facility] Inr 3.04 High 0.82-1.09 20 [phone] Standard intensity warfarin therapeutic range: 2.0-3.0 [...] 2.5-3.5 Procedures Date Code Description Status 09/27/2019 44683 Anticoagulant MGMT For Patient Taking Warfarin, Inc Review Completed & Intr 09/21/2019 54304 Anticoagulant MGMT For Patient Taking Warfarin, Inc Review Completed & Intr 09/13/2019 35995 Anticoagulant MGMT For Patient Taking Warfarin, Inc Review Completed & Intr 08/31/2019 73852 Anticoagulant MGMT For Patient Taking Warfarin, Inc Review Completed & Intr 08/23/2019 26087 Anticoagulant MGMT For Patient Taking Warfarin, Inc Review Completed & Intr 08/17/2019 38298 Anticoagulant MGMT For Patient Taking Warfarin, Inc Review Completed & Intr 08/09/2019 81976 Anticoagulant MGMT For Patient Taking Warfarin, Inc Review Completed & Intr 07/28/2019 99574 Aspiration/Injection Intermediate Joint, Bursa, Ganglion Completed Cyst 07/17/2019 57555 Anticoagulant MGMT For Patient Taking Warfarin, Inc Review Completed & Intr 06/20/2019 34222 Anticoagulant MGMT For Patient Taking Warfarin, Inc Review Completed & Intr 06/07/2019 16572 Anticoagulant MGMT For Patient Taking Warfarin, Inc Review Completed & Intr 05/31/2019 11703 Anticoagulant MGMT For Patient Taking Warfarin, Inc Review Completed & Intr 05/24/2019 30546 Anticoagulant MGMT For Patient Taking Warfarin, Inc Review Completed & Intr 05/18/2019 40737 Anticoagulant MGMT For Patient Taking Warfarin, Inc Review Completed & Intr 05/11/2019 10846 Anticoagulant MGMT For Patient Taking Warfarin, Inc Review Completed & Intr 05/04/2019 76523 Anticoagulant MGMT For Patient Taking Warfarin, Inc Review Completed & Intr 04/27/2019 87229 Anticoagulant MGMT For Patient Taking Warfarin, Inc Review Completed & Intr 04/13/2019 47729 Anticoagulant MGMT For Patient Taking Warfarin, Inc Review Completed & Intr 04/06/2019 44885 Anticoagulant MGMT For Patient Taking Warfarin, Inc Review Completed & Intr Medical Devices Description No Information Available Encounters Type Date Location Provider Dx Diagnosis Office Visit 07/28/2019 Main Office Phillip Klein Z11.59 Encounter for 11:45a screening for other viral diseases Z95.2 Presence of prosthetic heart valve M70.62 Trochanteric bursitis, left hip 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 of other heart-valve replacement Assessments Date Code Description Provider 09/27/2019 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 of other heart-valve replacement [...] Services 04/13/2019 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 of other heart-valve nick Klein MD 04/13/2019 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 of other heart-valve replacement [facility] 04/13/2019 Z23 Encounter for immunization Phillip Klein MD 04/06/2019 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 of other heart-valve replacement Phillip Klein MD 04/06/2019 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 of other heart-valve replacement [facility] Plan of Treatment Future Appointment(s):10/11/2019 9:40 am - [facility] at Main Nlrnpy3207/28/2019 - Phillip Klein MDZ11.59 Encounter for screening for other viral diseasesNew Medication:Shingrix - Take one injection intramuscularly, repeat in two months.Comments:Wants ángel. Provided with paper script.Z95.2 Presence of prosthetic [...]
--- OUTSIDE RECORDS SUMMARY | 2019-10-20 18:15 | XMS REPORT | Continuity of Care Document ---
:1930 External Reference #:[id number] Author Name [facility] (transmitted by agent of provider Yesi Eason) Address [address] [place] [address] Problems Description No Information Available Social History [...] Sodium apply 4 grams to 200gm Shannon Taedo, 04/19/2018 1% knees 4 times TURN DOWN MAN Gel daily. do not exceed 16 grams daily. Warfarin Sodium 1 tab by mouth 90tabs Phillip 5mg every day MD Latoya Tablets Sotalol HCL 1 tablet by mouth 180tabs Phillip 80mg twice daily MD Latoya Tablets Quinapril HCL Take One Tablet 90tabs Shannon Piedra, 10mg By Mouth Every TURN DOWN MAN Tablets Day Citracal +D3 1 by mouth every 180units Unknown day [id number] t Chewtabs Ipratropium Martin spray one to two 30units Shannon Piedra, sprays in both TURN DOWN MAN 0.03% Solution nostrils three times a day [...] CPT Code Status Date Vaccine Lot # [id number] Given 04/13/2019 Influenza Vaccine High Dose PF [id number] Given 04/11/2018 Influenza Vaccine High Dose PF [...] Test Result H/L Range Note Inr/Protime 09/21/2019 [facility] Inr 2.36 High 0.82-1.09 7 [phone] Inr/Protime 09/13/2019 [facility] Inr 2.61 High 0.82-1.09 2 [phone] Inr/Protime 09/06/2019 [facility] Inr 2.17 High 0.82-1.09 3 [phone] Inr/Protime 08/31/2019 [facility] Inr 2.04 High 0.82-1.09 4 [phone] Inr/Protime 08/23/2019 [facility] Inr 2.69 High 0.82-1.09 5 [phone] Inr/Protime 08/17/2019 [facility] Inr 4.23 High 0.82-1.09 6 [phone] Inr/Protime 08/09/2019 [facility] Inr 4.13 High 0.82-1.09 7 [phone] Inr/Protime 07/28/2019 [facility] Inr 2.11 High 0.82-1.09 8 [phone] Urine DIP 07/28/2019 In House Lab Leukocytes neg Neg (607)- - Urine Nitrites neg Neg Urobilinogen norm Norm Total Protein Urine neg Neg Urine pH 7 High 5-6 Urine Blood 1+ High Neg Specific [place] 1.010 1.01-1.02 Urine Ketones neg Neg Urine Bilirubin neg Neg Urine Glucose norm Norm Inr/Protime 07/17/2019 [facility] Inr 3.72 High 0.82-1.09 9 [phone] Inr/Protime 06/20/2019 [facility] Inr 2.74 High 0.82-1.09 10 [phone] Inr/Protime 06/07/2019 [facility] Inr 2.72 High 0.82-1.09 11 [phone] Inr/Protime 05/31/2019 [facility] Inr 2.38 High 0.82-1.09 12 [phone] Inr/Protime 05/24/2019 [facility] Inr 2.26 High 0.82-1.09 13 [phone] Inr/Protime 05/18/2019 [facility] Inr 3.16 High 0.82-1.09 14 [phone] Inr/Protime 05/11/2019 [facility] Inr 1.81 High 0.82-1.09 15 [phone] Inr/Protime 05/04/2019 [facility] Inr 1.61 High 0.82-1.09 16 [phone] Inr/Protime 04/27/2019 [facility] Inr 1.86 High 0.82-1.09 17 [phone] Inr/Protime 04/13/2019 [facility] Inr 3.04 High 0.82-1.09 18 [phone] Inr/Protime 04/06/2019 [facility] Inr 3.04 High 0.82-1.09 19 [phone] Inr/Protime 03/30/2019 [facility] Inr 3.25 High 0.82-1.09 20 [phone] Standard intensity warfarin therapeutic range: 2.0-3.0 [...] 2.5-3.5 Procedures Date Code Description Status 09/21/2019 00643 Anticoagulant MGMT For Patient Taking Warfarin, Inc Review Completed & Intr 09/13/2019 15236 Anticoagulant MGMT For Patient Taking Warfarin, Inc Review Completed & Intr 08/31/2019 94178 Anticoagulant MGMT For Patient Taking Warfarin, Inc Review Completed & Intr 08/23/2019 89458 Anticoagulant MGMT For Patient Taking Warfarin, Inc Review Completed & Intr 08/17/2019 07293 Anticoagulant MGMT For Patient Taking Warfarin, Inc Review Completed & Intr 08/09/2019 95352 Anticoagulant MGMT For Patient Taking Warfarin, Inc Review Completed & Intr 07/28/2019 53864 Aspiration/Injection Intermediate Joint, Bursa, Ganglion Completed Cyst 07/17/2019 59117 Anticoagulant MGMT For Patient Taking Warfarin, Inc Review Completed & Intr 06/20/2019 00746 Anticoagulant MGMT For Patient Taking Warfarin, Inc Review Completed & Intr 06/07/2019 72666 Anticoagulant MGMT For Patient Taking Warfarin, Inc Review Completed & Intr 05/31/2019 68611 Anticoagulant MGMT For Patient Taking Warfarin, Inc Review Completed & Intr 05/24/2019 47355 Anticoagulant MGMT For Patient Taking Warfarin, Inc Review Completed & Intr 05/18/2019 57570 Anticoagulant MGMT For Patient Taking Warfarin, Inc Review Completed & Intr 05/11/2019 23591 Anticoagulant MGMT For Patient Taking Warfarin, Inc Review Completed & Intr 05/04/2019 03853 Anticoagulant MGMT For Patient Taking Warfarin, Inc Review Completed & Intr 04/27/2019 84470 Anticoagulant MGMT For Patient Taking Warfarin, Inc Review Completed & Intr 04/13/2019 28817 Anticoagulant MGMT For Patient Taking Warfarin, Inc Review Completed & Intr 04/06/2019 88834 Anticoagulant MGMT For Patient Taking Warfarin, Inc Review Completed & Intr 03/30/2019 01143 Anticoagulant MGMT For Patient Taking Warfarin, Inc [...] [facility] Plan of Treatment 07/28/2019 - Phillip Klein MDZ11.59 Encounter for screening for other viral diseasesNew Medication:Shingrix - Take one injection intramuscularly, repeat in two months.Comments:Joses ángel. Provided with paper script.Z95.2 Presence of [...]
[2019-10-20 18:31] LABS: Albumin 4.4 g/dL (3.2-5.2); Albumin/Globulin Ratio 1.5 (1-3); BUN/Creatinine Ratio 22.1 (8-20); Calcium 10.5 mg/dL (8.6-10.3); EGFR African American 60.4 (>60); EGFR Non-African American 49.9 (>60); Potassium 4.7 mmol/L (3.5-5.0); Total Bilirubin 0.6 mg/dL (0.2-1.0); Total Protein 7.4 g/dL (6.4-8.9); Troponin I 0.01 ng/mL (<0.03)
[2019-10-20 18:34] LABS: INR 2.81 (0.82-1.09)
[2019-10-20 19:42] VITALS: BP 186/90
== END 2019-10-20 19:19 | disposition home or self-care (01) ==
LOC: ED 17:34
DX: H53.2 Diplopia (principal); I10 Essential (primary) hypertension; R42 Dizziness and giddiness; H53.8 Other visual disturbances; Z95.0 Presence of cardiac pacemaker; 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 of other heart-valve replacement; Z96.659 Presence of unspecified artificial knee joint; Z79.01 Long term (current) use of anticoagulants
CPT/HCPCS: 36415; 70450; 80053; 84484; 85025; 85610; 93005; 96374; 99283

== ENCOUNTER 2019-10-21 10:53 | Inpatient (IN) | payer MEDICARE ==
--- NOTE | 2019-10-21 11:07 | ED ---
Neurological HPI - HPI Summary HPI Summary: Pt. is an 89 y.o female who present to the ER for slurred speech and difficulty walking that started yesterday. Pt. was seen in the ED yesterday for hypertension and dizziness. She had negative labs and CT brain and was discharged home. Family state that when the picked pt. up from ED yesterday she had slurred speech. Pt. states slurred speech started around 1800 yesterday, 17 hours ago. Past medical hx of valve replacement, HTN, afib, pacemaker. INR yesterday therapeutic at 2.8. Sxs are moderate in severity. No current modifying factors. - History of Current Complaint Stated Complaint: DIZZINESS/SLURRED SPEECH PER EMS Time Seen by Provider: 10/21/19 10:55 - Allergy/Home Medications Allergies/Adverse Reactions: Allergies Allergy/AdvReac Type Severity Reaction Status Date / Time No Known Allergies Allergy Verified 10/21/19 11:45 Home Medications: Home Medications Acetaminophen [Tylenol] 500 mg PO Q6HR 08/11/12 [History Confirmed 10/21/19] Calcium Carbonate/Vitamin D3 [Calcium + D] 1 tab PO QAM 08/11/12 [History Confirmed 10/21/19] Quinapril HCl 10 mg PO BEDTIME 08/11/12 [History Confirmed 10/21/19] Sotalol TAB* [Betapace*] 80 mg PO BID 08/11/12 [History Confirmed 10/21/19] Warfarin TAB(*) [Coumadin(*)] 2.5 mg PO SUMOWEFR 08/11/12 [History Confirmed ] Warfarin TAB(*) [Coumadin(*)] 5 mg PO TUTHSA 08/11/12 [History Confirmed ] Cyanocobalamin [Vitamin B-12] 500 mcg PO SEE INSTRUCTIONS 04/13/16 [History Confirmed 10/21/19] PMH/Surg Hx/FS Hx/Imm Hx Previously Healthy: Yes Endocrine/Hematology History: Denies: Hx Diabetes Cardiovascular History: Reports: Hx Hypertension - medication used for many years, BP well controlled, Hx Pacemaker/ICD - PACER AND DEFIB, 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 2005 TOTAL KNEE CYTOLOGY MANAGER. 2009 CATARACTS CYTOLOGY MANAGER. BASAL CELL CYTOLOGY MANAGER AND STRONG Hx Anesthesia Reactions: No - Family History Known Family History: Positive: Non-Contributory Negative: Hypertension, Diabetes - Social History Occupation: Retired Lives: With Family Alcohol Use: None Substance Use Type: Reports: None Hx Tobacco Use: No Smoking Status (MU): Never Smoked Tobacco Review of Systems Constitutional: Negative Negative: Fever Eyes: Negative Cardiovascular: Negative Negative: Palpitations, Chest Pain Respiratory: Negative Negative: Shortness Of Breath, Cough Gastrointestinal: Negative Positive: Weakness, Slurred Speech All Other Systems Reviewed And Are Negative: Yes Physical Exam Triage Information Reviewed: Yes Vital Signs Reviewed: Yes Appearance: Positive: Well-Appearing - Pt. sitting up in bed in NAD. Awake, alert, and O x 3. Answers questions appropriately. 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 Negative: Receptive Aphasia, Expressive Aphasia Psychiatric: Positive: Affect/Mood Appropriate Procedures - Sedation Patient Received Moderate/Deep Sedation with Procedure: No Diagnostics - Laboratory Result Diagrams: 10/21/19 11:27 10/21/19 11:28 Lab Statement: Any lab studies that have been ordered have been reviewed, and results considered in the medical decision making process. NIH Scale - NIH Scale Level of Consciousness: Alert/Keenly Responsive Ask Patient the Month and His/Her Age: Both Correct Ask Pt to Open/Close Eyes and Assistant Media Planner/Release Non-Paretic Hand: Both Correctly Best Gaze (Only Horizontal Eye Movement): Normal Visual Field Testing: No Visual Loss Facial Paresis-Pt to Smile & Close Eyes or Grimace Symmetry: Normal/Symmetrical Motor Function - Right Arm: No Drift-Holds 10 Seconds Motor Function - Left Arm: Drifts LT 10 seconds Motor Function - Right Leg: No Drift-Holds 10 Seconds Motor Function - Left Leg: No Drift-Holds 10 Seconds Limb Ataxia-Must be out of Proportion to Weakness Present: Present in One Limb Sensory (Use Pinprick to Test Arms/Legs/Trunk/Face): Normal Best Language (Describe Picture, Name Items): Some Loss Extinction and Inattention: No Abnormality Course/Dx - Course Course Of Treatment: Pt. presenting with slurred speech, dizziness that started yesterday. NIHSS of 2. Case immediately discussed with Dr. Tripp. She recommends CTA head and neck and neuro consult. Case discussed with Dr. Edwards , neuro, at 1115. He recommends CTA and 325mg ASA. He notes if CTA shows occlusion then consult with [facility], if no occlusion will plan for admission. ECG done at 1116 showed a paced an atrial paced rhythm of 76bpm, right axis deviation, prolonged QT interval. . 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 Plaque is noted at the origin of the left internal carotid artery although this is likely. less than 50%. The internal carotid arteries demonstrates no evidence of carotid artery dissection. CTA discussed with Dr. Sandoval. He recommends admission for obs and will see pt. in consult for further treatment and MRI. Case discussed with Dr. Tran, hospitalist, who accepts pt. for admission. Plan and results discussed with pt.'s daughter by nurse. - Differential Dx Differential Diagnoses Neuro: Positive: Cerebrovascular Accident, Intracranial Bleed, Transient Ischemic Attack - Diagnoses Provider Diagnoses: Neurological deficit present, CVA (cerebral vascular accident) Discharge ED - Sign-Out/Discharge Documenting (check all that apply): Patient Departure - Discharge Plan Condition: Stable Disposition: ADMITTED TO [facility] - Billing Disposition and Condition Condition: STABLE Disposition: Admitted to [facility] - Attestation Statements Provider Attestation: I have seen the patient with the RAMILA and agree with the plan and documentation below except as noted: Briefly this an 89-year-old female with history of hypertension presented with dysarthria, gait abnormality concern for stroke. Last known normal was greater than 18 hours ago. Stroke code not activated. CT and CTA w/o any abnormalities. Discussed with neurology who recommends admission. Nicola Tripp MD
[2019-10-21] MEDS ORDERED: Iodixanol* (CONTRAST) 320 MG/ML 100 ML SDV IV ONE (11:18)
[2019-10-21] MEDS ORDERED: Aspirin TAB* 325 MG PO ONE (11:19)
[2019-10-21 11:41] LABS: ABS Basophils 0.1 10^3/ul (0-0.2); ABS Eosinophils 0.2 10^3/ul (0-0.6); ABS Lymphocytes 1.2 10^3/ul (1.0-4.8); ABS Monocytes 0.9 10^3/ul (0-0.8); ABS Neutrophils 9.1 10^3/ul (1.5-7.7); Eosinophil % 1.5 %; Hematocrit 41 % (35-47); Hemoglobin 13.8 g/dL (12.0-16.0); Lymphocyte % 10.2 %; Mean Corpuscular HGB Conc 34 g/dL (31-36); Mean Corpuscular Hemoglobin 31 pg (27-31); Mean Corpuscular Volume 91 fL (80-97); Mean Platelet Volume 8.1 fL (7.4-10.4); Platelet Count 169 10^3/uL (150-450); Red Blood Count 4.45 10^6 /uL (3.70-4.87); Red Cell Distribution Width 14 % (10-15); White Blood Count 11.4 10^3/uL (3.5-10.8)
[2019-10-21 11:51] LABS: INR 2.75 (0.82-1.09)
[2019-10-21 12:00] LABS: ALT 11 U/L (7-52); AST 21 U/L (13-39); Albumin/Globulin Ratio 1.5 (1-3); Alkaline Phosphatase 68 U/L (34-104); Anion Gap 6 mmol/L (2-11); BUN/Creatinine Ratio 23.6 (8-20); Blood Urea Nitrogen 21 mg/dL (6-24); CO2 Carbon Dioxide 27 mmol/L (22-32); Calcium 10.1 mg/dL (8.6-10.3); Chloride 105 mmol/L (101-111); EGFR African American 72.3 (>60); EGFR Non-African American 59.7 (>60); Globulin 2.6 g/dL (2-4); Glucose 99 mg/dL (70-100); Potassium 3.8 mmol/L (3.5-5.0); Sodium 138 mmol/L (135-145); Total Protein 6.6 g/dL (6.4-8.9)
[2019-10-21 12:06] LABS: Troponin I 0.04 ng/mL (<0.03)
[2019-10-21] MEDS ORDERED: Acetaminophen TAB* 325 MG PO PRN (14:13)
[2019-10-21] MEDS ORDERED: NS 0.9% 1000 ML** 1,000 ML IV SCH (14:15)
[2019-10-21 14:42] LABS: C Reactive Protein 6.57 mg/L (<8.01)
--- NOTE | 2019-10-21 16:02 | HP ---
ADDENDUM NOW INCLUDED ON THIS REPORT CC: Dr. Edwards; Dr. Klein; Dr. Byrnes; Dr. Serra * HISTORY AND PHYSICAL: DATE OF ADMISSION: 10/21/19 PRIMARY CARE PROVIDER: Dr. Klein. CHIEF COMPLAINT: Dizzy. HISTORY OF PRESENT ILLNESS: Ms. Grant is an 89-year-old female with history of chronic atrial fibrillation, on anticoagulation with Coumadin, status post ICD placement and mitral valve replacement in , who presented to the hospital complaining of dizziness yesterday. The patient stated that yesterday upon awakening from her nap at 3 p.m. she was very unsteady on her feet, felt like she was in a ship. She also had transient blurry vision. She stated that she was evaluated in the ED and discharged, but she continued on with dizziness. Today, she was so unsteady, she fell in the bathroom. She denies losing consciousness. She stated that merely she was unsteady when she stood up and she landed on her bottom. She did not hit her head. She also noted intermittent slurring of words. She came into the ED for reevaluation. Here, she was noted to be markedly ataxic with intermittent slurred speech. She is going to be placed on telemetry monitored floor with a diagnosis of likely CVA. PAST MEDICAL HISTORY: 1. Rheumatic heart disease, status post mitral valve replacement in 1973. 2. Status post ICD placement for ventricular tachycardia. 3. Atrial fibrillation, on Coumadin. SOCIAL HISTORY: The patient denies any tobacco, alcohol, or drug use. She is a full code. Lives alone. Ambulates with a rolling walker. Drives independently and gets her groceries without any problems at baseline. Her closest next of kin is Eneida Grant, her daughter, who lives 50 miles away. Eneida would be her surrogate. Eneida's phone number is [phone]. The patient denies any tobacco, alcohol, or drug use. REVIEW OF SYSTEMS: Please see history of present illness. In addition to above - mentioned, all the remaining 12 systems were reviewed with the patient and were otherwise negative. PHYSICAL EXAMINATION GENERAL: The patient is a very pleasant 89-year-old female who is in no acute distress. The patient is alert and oriented x3. VITAL SIGNS: Blood pressure of 131/64, heart rate of 80 and irregular, respiratory rate 24, oxygen saturation 97% on room air, temperature 98.7. HEENT: Head: Atraumatic, normocephalic. Eyes: Pupils are equal, reactive to light and accommodation. Oropharynx is clear. Mucosa moist. NECK: Supple. No JVD. No bruits bilaterally. RESPIRATORY: Clear to auscultation bilaterally. CARDIOVASCULAR: Irregularly irregular rhythm. No murmur. ABDOMEN: Soft, nontender. Bowel sounds present in all 4 quadrants. EXTREMITIES: There is no edema. Pulses are +2 bilaterally. No clubbing or cyanosis. NEUROLOGIC: The patient has intermittent slight dysarthria and has difficulty finding words intermittently. Occasionally, her speech is clear. Cranial nerves II through XII are grossly intact. Motor strength is 5/5 bilaterally. Sensation grossly intact. When the patient was stood up, she was markedly ataxic, she had to hold onto things to be able to support her weight. She had no nystagmus on evaluation and Babinski's were negative bilaterally. Finger-to- nose was slightly dysmetric bilaterally, slightly more so on the left. PSYCHIATRIC: Oriented x3 with no evidence of anxiety or depression. DIAGNOSTIC STUDIES/LAB DATA: White blood cell count of 11.4, hemoglobin of 13.8, hematocrit of 41, and platelets 169. INR 2.75, PTT of 44. Sodium was 138 , potassium 3.8, chloride 105, carbon dioxide 27, BUN 21, creatinine 0.89. Liver function tests were unremarkable. Troponin of 0.04. Urinalysis is pending. 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 Plaque is noted at the origin of the left internal carotid artery, although this is likely less than 50%. The internal carotid arteries demonstrate no evidence of carotid artery dissection. Intracranial vessels demonstrate atherosclerosis in the intracavernous portion of the carotid arteries bilaterally. No aneurysmal dilatation or branch occlusion is noted." Brain CT, impression: "There is age related diffuse cerebral and cerebellar volume loss and chronic microvascular ischemic disease. There is a small focus of encephalomalacia in the left frontal lobe consistent with chronic infarct. No acute intracranial pathology." The patient's EKG showed atrial paced QRS complexes with a heart rate of 76 beats per minute with no ST changes. ASSESSMENT AND PLAN: 1. An 89-year-old female who developed ataxia and intermittently slurred speech since yesterday at 3 p.m. 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 She is already on Coumadin with an INR that is therapeutic at 2.7. I will add on a baby aspirin to her treatment. The patient is going to be placed on overnight observation. PT and OT are going to be ordered. We will also obtain bedside swallow evaluation. I discussed briefly the case with Dr. Edwards, who recommended continuation of aspirin together with Coumadin. Transthoracic echocardiogram is going to be obtained in the morning. We will obtain MRI on Wednesday. 2. For the patient's atrial fibrillation, her sotalol is going to be continued as well as warfarin as above mentioned. 3. In regards to the patient's code status, her code status is full and the patient's daughter, Eneida, is her surrogate. 4. For DVT prophylaxis, the patient is already anticoagulated fully with Coumadin. TIME SPENT: Approximately 65 minutes was spent on admission of this patient, more than half that time was spent [id number] with the patient during the interview and physical exam. ADDENDUM: MEDICATIONS: 1. Sotalol 80 mg b.i.d. 2. Quinapril 10 mg at bedtime. 3. Vitamin B12 500 mcg daily. 4. Calcium carbonate with vitamin D 1 tablet daily. 5. Acetaminophen on a p.r.n. basis. 6. Coumadin 5 mg Tuesdays, and Saturdays and 2.5 mg on remaining days of the week. [id number]/[facility]PS #: [id number]/CPS #: [id number] [facility]
[2019-10-21] MEDS: Atorvastatin* 40 MG TAB PO SCH (16:17)
[2019-10-21] MEDS ORDERED: Warfarin TAB(*) 5 MG PO SCH (17:00)
[2019-10-21 17:20] LABS: Troponin I 0.03 ng/mL (<0.03)
[2019-10-21] MEDS: Sotalol TAB* 80 MG PO SCH (21:09)
[2019-10-22 05:49] LABS: INR 3.88 (0.82-1.09)
[2019-10-22] MEDS: Sotalol TAB* 80 MG PO SCH ×2 (08:45→21:05)
[2019-10-22] MEDS: Aspirin 81 mg CHEW TAB* 81 MG TAB.CHEW PO SCH (08:45)
--- NOTE | 2019-10-22 10:15 | PN ---
Subjective Date of Service: 10/22/19 Interval History: Pt feels "loopy in the head", still c/o dizziness. Has not walked yet Objective Active Medications: Acetaminophen (Tylenol Tab*) 650 mg PO Q4H PRN PRN Reason: PAIN-MILD/TEMP >/= 100.4 Last Admin: 10/22/19 02:54 Dose: 650 mg Aspirin (Aspirin 81 Mg Chew Tab*) 81 mg PO DAILY [facility] Last Admin: 10/22/19 08:45 Dose: 81 mg Atorvastatin Calcium (Lipitor*) 40 mg PO 1700 [facility] Last Admin: 10/21/19 16:17 Dose: 40 mg Sotalol HCl (Betapace Tab*) 80 mg PO BID [facility] Last Admin: 10/22/19 08:45 Dose: 80 mg Vital Signs - 8 hr 10/22/19 10/22/19 10/22/19 03:00 07:00 07:45 Temperature 97.7 F 97.3 F 97.4 F Pulse Rate 80 88 76 Respiratory 20 16 16 Rate Blood Pressure 135/56 129/89 149/82 (mmHg) O2 Sat by Pulse 97 97 98 Oximetry 10/22/19 08:00 Temperature Pulse Rate Respiratory 16 Rate Blood Pressure (mmHg) O2 Sat by Pulse Oximetry Oxygen Devices in Use Now: None Appearance: 89 yo f in nAD, AAOx2, occasionall difficulty finding words noted, no clear dysarthia Eyes: No Scleral Icterus, PERRLA Ears/Nose/Mouth/Throat: NL Teeth, Lips, Gums, Mucous Membranes Moist Neck: NL Appearance and Movements; NL JVP, Trachea Midline Respiratory: Symmetrical Chest Expansion and Respiratory Effort, Clear to Auscultation Cardiovascular: NL Sounds; No Murmurs; No JVD, RRR Abdominal: NL Sounds; No Tenderness; No Distention Lymphatic: No Cervical Adenopathy Extremities: No Edema Skin: No Rash or Ulcers, No Nodules or Sclerosis Neurological: - - mild flattening of left naso-labial fold, left arm minimal drift, marked ataxia-cannot hardy stand up fully before collapsing back to chair , motor 5/5 all extremities, sensation intact, no visual field deficit Result Diagrams: 10/21/19 11:27 10/21/19 11:28 Assess/Plan/Problems-Billing Assessment: 89 yo f with h/o rheumatic heart disease, s/p MVR in 1973, A. fib on Coumadin, V. tach , s/p ICD presents with dizziness and likely ischemic CVA - Patient Problems (1) CVA (cerebral vascular accident) Comment: pt had mild left arm drift,severe ataxia, mild disorientation today cont ASA/Coumadin held (due to INR>3 today) Unsure if pt can have MRI due to ICD in place Neurology consulted Dysphagia on swallow eval noted -on puree diet Statin started, fasting lipids ordered for AM (2) Atrial fibrillation Comment: HR paced cont Sotalol (3) DVT prophylaxis Comment: fully anticoagulated on coumadin
--- NOTE | 2019-10-22 10:22 | HP ---
HISTORY AND PHYSICAL: ADDENDUM: MEDICATIONS: 1. Sotalol 80 mg b.i.d. 2. Quinapril 10 mg at bedtime. 3. Vitamin B12 500 mcg daily. 4. Calcium carbonate with vitamin D 1 tablet daily. 5. Acetaminophen on a p.r.n. basis. 6. Coumadin 5 mg Tuesdays, and Saturdays and 2.5 mg on remaining days of the week. [id number]/[facility] #: [id number] [facility]LANDTurner
--- NOTE | 2019-10-22 15:00 | CONS ---
NEUROLOGY CONSULTATION: DATE OF CONSULT: 10/22/19 HOSPITALIST: Dr. Tran. PRIMARY CARE PROVIDER: Dr. Klein. LOCATION: She is an inpatient, she is in room 437. CHIEF COMPLAINT: Dizziness, slurred speech, double vision. HISTORY OF PRESENT ILLNESS: Graciela Grant is an 89-year-old woman who first felt ill on 10/20/19 with a sense of dizziness and unsteadiness. She developed double vision as well. She was evaluated in the emergency room where it was felt that she had recovered and she was discharged home. In the emergency room, she had a normal neurological exam with an NIH score of 0. It was felt that she had an intrinsic ophthalmological issue, was referred to see her adobe architect. The following day, she again felt dizzy and had double vision. She presented to the emergency room again. At that point, she had dysarthria as well as dizziness and was having difficulty walking. She was admitted. Currently, she reports double vision, slurred speech, and unsteadiness on her feet. She has not been walking today. There is no prior history of cerebrovascular disease. She has chronic atrial fibrillation as well as a prosthetic heart valve and is on chronic anticoagulation. Her INR when she presented on 10/20/19 was 2.8 and it was 2.75 yesterday. This morning, it is up to 3.88. PAST MEDICAL HISTORY: Her past medical history is notable for chronic arterial fibrillation, chronic anticoagulation, defibrillator placement, rheumatic heart disease, mitral valve replacement, hypertension. MEDICATIONS AT HOME: Consist of warfarin alternating 5 mg and 2.5 mg doses, quinapril 10 mg p.o. q.h.s., sotalol 80 mg p.o. b.i.d., calcium supplementation , vitamin B12 500 mcg p.o. daily. ALLERGIES: She does not have any drug allergies. REVIEW OF SYSTEMS: From the patient is negative for headaches or nausea. She does admit to difficulty swallowing. She has not noticed incoordination in her hands. She has not been able to ambulate today. She does not feel short of breath. She has not had any recent fevers or cough. She denies chest pain. She does not feel nauseous currently. PHYSICAL EXAMINATION: She is well nourished and well hydrated. Temperature is 97.4, blood pressure 149/82, heart rate 76 and irregular. Cardiac exam: Heart rhythm is irregular, but I do not hear any murmurs. Carotid pulses are present and there are no cervical bruits. Head is atraumatic. Oral mucosa is moist and tongue is atraumatic. Neurological Exam: Pupils react equally from 3 down to 2 mm. Eye movements are notable for what appears to be a right intranuclear ophthalmoplegia, but also failure of abduction of the right eye. There is nystagmus in the left eye only in left gaze. Facial musculature is symmetric. Palate and tongue appear normal, but she has dysarthria. Tongue protrudes in the midline and palate rises symmetrically. Facial sensation to pin and light touch is reported as symmetric. She is a little hard of hearing bilaterally. Motor exam reveals normal strength in the limbs. There is no drift of any limb. Finger taps and [id number] maneuver are very clumsy with the right hand. Heel- to-padron maneuver is clumsy with the right leg. There is also either mild dysmetria on [id number] on the left or possibly because of her visual impairment. Sensory exam in normal for age. She has diminished light touch in the feet but sensation to pin and light touch is otherwise symmetrical in the limbs. Reflexes are trace in the upper extremities and at the knees and absent at the ankles. She has bilateral Babinski signs. I did not attempt to ambulate her. He is alert and oriented with some mild memory impairment. Language is fluent. DIAGNOSTIC STUDIES/LAB DATA: Laboratory data includes a CT scan of the brain interpreted as normal. I reviewed the images and I agree. 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 There is some plaque in the proximal left internal carotid artery, thought to be less than 50%. Laboratory data today is notable for INR of 3.88, CBC is normal other than a borderline elevated white blood cell count at 11.4. Chemistries are notable for troponin of 0.03 yesterday and 0.04 yesterday later in the day. In addition to her home medication, she was started on aspirin 324 mg started yesterday and 81 mg a day as of today. She is now on atorvastatin 40 mg. IMPRESSION: Impression is that of a brainstem stroke. She is already on anticoagulation with an adequate INR. There does not appear to be any large vessel to intervene on. It is possible the aberrant subclavian is the source of emboli but I do not think anything can really be done about that. Even though aspirin does increase her risk of bleeding, I think an antiplatelet agent makes sense at this point. Clearly if she extended a brainstem infarct, it could be fatal and so I think it is worth the risk of adding aspirin. If her symptoms worsen, I would not be averse to adding Plavix in spite of the increased risk involved. I think in the short term the hemorrhagic risk would be outweighed by the risk of progressive brainstem ischemia. Currently, her blood pressure is adequate. Her medication still includes sotalol but that appears to be appropriate specifically given her arrhythmia. She has been started on atorvastatin which I agree with. I have asked her nurse to patch 1 eye to try to improve her diplopia. Our service will continue to follow her along with you. [id number]/[facility] #: [id number] COLE
[2019-10-22] MEDS ORDERED: Warfarin TAB(*) 2.5 MG PO SCH (17:00)
[2019-10-22] MEDS: Atorvastatin* 40 MG TAB PO SCH (17:10)
[2019-10-23 06:08] LABS: INR 4.14 (0.82-1.09)
[2019-10-23 06:24] LABS: HDL Cholesterol 43.9 mg/dL
[2019-10-23] MEDS: Sotalol TAB* 80 MG PO SCH (09:21)
[2019-10-23] MEDS: Aspirin 81 mg CHEW TAB* 81 MG TAB.CHEW PO SCH (09:21)
--- NOTE | 2019-10-23 11:11 | ECHO ---
*[facility]* [place] [address] Fax #: [phone] Transthoracic Echocardiogram Patient: Graciela Grant : 1930 Study Date: 10/23/2019 Age: 89 Gender: F HR: 79 bpm Height: 62 in /157.5 cm BSA: 1.42 m^2 Weight: 99.8 lb /45.4 kg BMI: 18.3 kg/m^2 *Explosive Operator Grenade: * Leah Edmonds [facility] *Referring Physician: * Violetta Tran *Reading Physician: * Bryan Byrnes MD Indications: CVA. History: Atrial fibrillation. Risk factors: Hypertension. Labs, prior tests, procedures, and surgery: ICD system implantation. Valve surgery (1973). Mitral valve replacement with a mechanical valve. Conclusions Summary: - Left ventricle: Systolic function is normal. The estimated ejection fraction is 60-65%. Wall motion is normal; there are no regional wall motion abnormalities. - Right ventricle: Systolic function is normal. - Left atrium: The atrium is moderately dilated. - Atrial septum: Delayed appearance of agitated saline contrast in the LA suggestive of possible transpulmonary passage or shunt. No intracardiac shunt or PFO - Mitral valve: There is a mechanical prosthesis. There is no evidence of stenosis. There is mild to moderate regurgitation. - Aortic valve: Thickening, consistent with sclerosis. There is trace to mild regurgitation. - Tricuspid valve: There is trace regurgitation. - Pericardium, extracardiac: There is no significant pericardial effusion. - Pulmonary arteries: Systolic pressure is within the normal range. - Compared to study of 08/29/14, there is little change. Study data: Transthoracic echocardiogram. Procedure: Transthoracic echocardiography was performed. Image quality was fair. The study was technically limited due to poor acoustic window availability. A bubble study was performed. Complete 2D, spectral Doppler, and color flow Doppler. Location: Bedside. Patient status: Inpatient. Patient room number: 437. Rhythm: Paced rhythm. Findings Left ventricle: The cavity size is normal. Wall thickness is normal. Systolic function is normal. The estimated ejection fraction is 60-65%. Wall motion is normal; there are no regional wall motion abnormalities. There is no consistent Doppler evidence of clinically significant diastolic dysfunction. Right ventricle: The cavity size is normal. Pacer wire noted in the right ventricle. Systolic function is normal. Systolic pressure is within the normal range. Ventricular septum: There is abnormal interventricular septal wall motion consistent with an RV pacemaker. Left atrium: Poorly visualized. The atrium is moderately dilated. Right atrium: The atrium is normal in size. Pacer wire noted in right atrium. Atrial septum: Delayed appearance of agitated saline contrast in the LA suggestive of possible transpulmonary passage or shunt. Images 4 and 5. Mitral valve: Poorly visualized. There is a mechanical prosthesis. The leaflets are mildly thickened. There is no evidence of stenosis. There is mild to moderate regurgitation. Aortic valve: The valve is trileaflet. The leaflets are mildly thickened. Thickening, consistent with sclerosis. There is trace to mild regurgitation. Tricuspid valve: The leaflets are normal thickness. There is no evidence of stenosis. There is trace regurgitation. Pulmonic valve: The leaflets are normal thickness. There is no evidence of stenosis. There is trace regurgitation. Aorta: Aortic root: The aortic root is appears normal. Ascending aorta: The ascending aorta is appears normal. Aortic arch: The aortic arch is appears normal. Pericardium: There is no significant pericardial effusion. Pulmonary arteries: The main pulmonary artery is normal-sized. Systolic pressure is within the normal range. Systemic veins: Inferior vena cava: There is (>= 50%) respiratory change in the IVC dimension. Measurements Left ventricle Value Ref Aortic valve Value Ref DAVID, LAX 4.2 cm 3.8 - 5.2 Ang diam, ED 1.9 cm ----- ESD, LAX 3.1 cm 2.2 - 3.5 Peak v, S 1.03 m/sec ----- FS, LAX (L) 26 % 27 - 45 VTI, S 23.2 cm ----- PW, ED, LAX 0.8 cm 0.6 - 0.9 Mean grad, S 2.0 mm Hg ----- FS (L) 26 % 27 - 45 Peak grad, S 4.0 mm Hg ----- Mid-wall FS 13 % LVOT/AV, VTI ratio 0.43 ----- PW, ED 0.8 cm 0.6 - 0.9 PARESH, VTI 1.35 cm^2 ----- E', lat ang, TDI (L) 5.7 cm/sec >=10.0 PARESH, Vmax 1.49 cm^2 --- -- E/e', lat ang, 20 TDI Mitral valve Value Ref E', med ang, TDI (L) 3.3 cm/sec >=7.0 Peak E 1.14 m/sec --- -- E/e', med ang, 35 Peak A 0.51 m/sec ----- TDI Decel time 194 ms ----- E', avg, TDI 4.5 cm/sec PHT 81 ms ----- E/e', avg, TDI (H) 25 <=14 Mean grad, D 3.0 mm Hg --- -- Peak grad, D 7.0 mm Hg ----- LVOT Value Ref Peak E/A ratio 2.2 ----- Diam, S 2.00 cm MVA, PHT 2.7 cm^2 ----- Area 3.1 cm^2 Peak julissa, S 0.49 m/sec Pulmonic valve Value Ref VTI, S 10.0 cm Peak v, S 0.49 m/sec ----- Mean grad, S 1 mm Hg Peak grad, S 1.0 mm Hg ----- SV 30 ml SV/bsa 21 ml/m^2 Tricuspid valve Value Ref TR peak v 2.07 m/sec <=2.8 Ventricular septum Value Ref Peak RV-RA grad, S 17 mm Hg ----- IVS, ED 0.8 cm 0.6 - 0.9 Aortic root Value Ref Right ventricle Value Ref Root diam 2.9 cm <3.7 DAVID, LAX 1.9 cm DAVID minor ax, A4C 2.9 cm 1.9 - 3.5 Ascending aorta Value Ref mid AAo AP diam, S 3.2 cm ----- Pressure, S 20 mm Hg Aortic arch Value Ref Left atrium Value Ref Arch diam 2.5 cm ----- AP dim, ES 3.70 cm 2.70 - 3.80 Decending aorta Value Ref ML dim, A4C 4.0 cm Terrell peak julissa 0.41 m/sec ----- SI dim, A4C 4.4 cm Vol/bsa, ES, 1-p 26 ml/m^2 11 - 40 Pulmonary artery Value Ref A4C Pressure, S 19.0 mm Hg ----- Vol/bsa, ES, A/L (H) 46 ml/m^2 16 - 34 Inferior vena cava Value Ref Right atrium Value Ref Diam 1.2 cm ----- SI dim, ES 4.4 cm 3.4 - 5.3 ML dim, ES, A4C 3.6 cm 2.6 - 4.4 Estimated RAP 3 mm Hg Legend: (L) and (H) suhas values outside specified reference range. Prepared and electronically signed by Bryan Byrnes MD 10/23/2019 11:10
[2019-10-23 12:01] VITALS: BP 132/63
--- NOTE | 2019-10-23 13:10 | PN ---
Subjective Date of Service: 10/23/19 Length of Stay: 2 Days Neurology is following for stroke. Interval History: Mrs. Grant has double vision and left sided weakness. The symptoms have not changed. She still has slurred speech. She was able to drink milk without difficulty. The patient stated that she first had symptoms of nausea and dizziness that progressed to double vision and now weakness. She takes coumadin regularly. Labs, imaging, and other diagnostic studies: INR: 4.14 Cholesterol: 190 LDL: 116 CTA head and neck 10/23/19: There is atherosclerotic plaque in the apparent right subclavian artery. Plaque is noted at the origin of the left ICA. There is an area of hypodensity in the right medial midbrain seen on the axial, coronal, and sagittal cuts on CT. TTE: EF: 60-65%. No PFO. Review of Systems: Denied CP, SOB, or palpitations. Objective Active Medications: Acetaminophen (Tylenol Tab*) 650 mg PO Q4H PRN PRN Reason: PAIN-MILD/TEMP >/= 100.4 Last Admin: 10/22/19 02:54 Dose: 650 mg Aspirin (Aspirin 81 Mg Chew Tab*) 81 mg PO DAILY [facility] Last Admin: 10/23/19 09:21 Dose: 81 mg Atorvastatin Calcium (Lipitor*) 40 mg PO 1700 [facility] Last Admin: 10/22/19 17:10 Dose: 40 mg Sotalol HCl (Betapace Tab*) 80 mg PO BID [facility] Last Admin: 10/23/19 09:21 Dose: 80 mg Vital Signs 10/22/19 10/22/19 10/22/19 16:00 20:00 23:59 Temperature 97.2 F 97.4 F 97.2 F Pulse Rate 79 81 76 Respiratory 16 20 18 Rate Blood Pressure 175/73 145/80 107/49 (mmHg) O2 Sat by Pulse 99 98 96 Oximetry 10/23/19 10/23/19 10/23/19 04:00 04:22 07:57 Temperature 97.3 F 98.5 F Pulse Rate 86 78 Respiratory 16 20 Rate Blood Pressure 94/53 110/54 115/48 (mmHg) O2 Sat by Pulse 97 98 Oximetry 10/23/19 10/23/19 09:52 12:00 Temperature 97.2 F Pulse Rate 86 Respiratory 18 22 Rate Blood Pressure 132/63 (mmHg) O2 Sat by Pulse 98 Oximetry Intake and Output Last 24 Hours 10/21/19 10/22/19 10/23/19 10/24/19 06:59 06:59 06:59 06:59 Intake Total 110 360 Output Total 400 0 Balance -290 360 Weight 109 lb 3 oz Intake: Oral 110 360 Output: Urine 400 0 Oxygen Devices in Use Now: Nasal Cannula Neurology Exam: General: Frail appearing female in no distress. HEENT: Normocephelic/atraumatic, sclera anicteric, mucous membranes moist Neck: Supple Chest: Clear to auscultation bilaterally Cardiovascular: Regular rate and rhythm without murmurs, rubs, gallops Extremities: No clubbing, cyanosis, or edema Neurological Findings: NIHSS: 2 (Dysarthria and dysmetria) Awake, alert, and oriented to person, place, and time. Speech: Mild spastic dysarthria. Cranial Nerve: PERRL. OD: weakness to adduction and abduction with slightly intact vertical eye movements. OS: Weakness to adduction and horizontal nystagmus towards the left. Diplopia resolves with one eye closure. Motor: 4/5 pyramidal weakness on the left. 5/5 on the right. Sensation: intact to LT/PP bilaterally upper and lower extremities Deep Tendon Reflex: 2+ symmetric in the upper/lower extremities, Babinski - down going Mild dysmetria on finger to nose on the right. Gait: deferred Result Diagrams: 10/21/19 11:27 10/21/19 11:28 Assessment/Plan Mrs. Grant is an 89-year-old female who has a past medical history notable for chronic atrial fibrillation on coumadin, defibrillator, rheumatic heart disease with mitral valve replacement, and hypertension who presented to [facility] on 10/21/2019 with symptoms of nausea, vomiting, and double vision. The patient's examination is notable for bilateral NISHANT, right upper extremity dysmetria, and mild left hemiparesis. She also has dysarthria speech and mild dysphagia. The CTA did not show any evidence of large vessel occlusion but did show area of hypodensity in the right midbrain (it was not reported). 1. 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 She is already on coumadin. I do agree with adding aspirin for now, no longer than 30 days, to stabilize any small vessel occlusion, and to prevent from progression of her neurological deficits. Agree with atorvastatin 40 mg nightly. Have a low threshold of obtaining a repeat CT head if she develops worsening weakness or headaches. Stroke education was completed. She will require rehabilitation. Pending PT/OT/BARREL CLEANER evaluation and treatment. Follow-up with neurology in 4-6 weeks, if possible.
--- NOTE | 2019-10-23 14:57 | DS ---
CC: Dr. Klein; Dr. Byrnes; Dr. Serra; Dr. Edwards * DISCHARGE SUMMARY: DATE OF ADMISSION: 10/21/19 DATE OF DISCHARGE: 10/23/19 PRIMARY CARE PROVIDER: Dr. Klein. DISPOSITION AT DISCHARGE: [facility]-term rehabilitation. CONDITION ON DISCHARGE: Stable. DISCHARGE DIAGNOSES: 1. Diplopia. 2. Ataxia. 3. Unsteadiness and mild left arm dysmetria due to ischemic cerebrovascular accident. SECONDARY DIAGNOSES: 1. Rheumatic heart disease, status post mitral valve replacement in 1973. 2. Status post ICD placement for ventricular tachycardia. 3. Atrial fibrillation, on Coumadin. MEDICATIONS AT DISCHARGE: Include: 1. Aspirin 81 mg daily. 2. Coumadin 3 mg daily. The patient should be started back on Coumadin once her INR is at 3.5 or below. 3. Lipitor 40 mg daily. 4. Sotalol 80 mg b.i.d. 5. Vitamin B12 500 mcg daily. 6. Calcium carbonate with vitamin D 1 tablet daily. 7. Acetaminophen on a p.r.n. basis. CONSULTATIONS DURING HOSPITAL STAY: Included Dr. Edwards from Neurology. LABORATORY DATA AND STUDIES PERFORMED DURING THE HOSPITAL STAY: INR at the patient's discharge was 4.14. The patient's INR at admission was 2.75, on 10/21 was 3.88. The patient had her Coumadin held during her hospital stay; despite that, her INR continues to increase. On 10/21/19, sodium of 138, potassium 3.8, chloride 105, carbon dioxide 27, BUN 21, creatinine 0.89. Liver function tests unremarkable. Troponin of 0.04 to 0.03. Cholesterol profile showed triglycerides of 150s, cholesterol total of 190 , LDL of 116, HDL 43.9. The patient's last echocardiogram showed EF of 60% to 65%, wall motion abnormality normal, no PFO. There was delayed appearance of agitated saline contrast in the left atrium suggestive of possible transpulmonary passage or shunt. The mitral valve has mechanical prosthesis. There is no evidence of stenosis. There is mild- to-moderate regurgitation. Aortic valve with thickening consistent with sclerosis. There is trace to mild regurgitation. Tricuspid valve with trace regurgitation. Systolic pressure of pulmonary arteries is within normal range. Head CTA obtained on admission, impression: "There is atherosclerotic plaque of the upper and right subclavian artery. Plaque is noted at the origin of the left internal carotid artery, although it likely less than 50%. The internal carotid arteries demonstrate no evidence of carotid artery dissection." CT of the brain was originally obtained on 10/20/19. Impression: "There is age - related diffuse cerebral and cerebellar volume loss and chronic microvascular ischemic change. There is small focus of encephalomalacia in the left frontal lobe consistent with chronic infarct. No acute intracranial pathology." HOSPITALIZATION COURSE: Graciela Grant is an 89-year-old female who up to that point was living independently. She was ambulatory with a roller walker and she was able to drive to get her groceries. Otherwise, though she was pretty sedentary and she stated that usually she did not walk further than from her chair to the bathroom and back. The patient has history of atrial fibrillation, on chronic anticoagulation with Coumadin. She also has mechanical mitral valve. She presented to the hospital with dizziness and double vision. She was admitted for evaluation of possible CVA. Due to her history of ICD for ventricular tachycardia in the past, an MRI could not be performed. Dr. 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 The patient continued to have residual diplopia and ataxia and she needed significant assistance with ambulation. For her diplopia, she can patch her left eye if needed if the diplopia is bothersome. She also continues to be intermittently confused, but that improved throughout her hospital stay while she got some more sleep. She had mild dysarthria at admission that resolved by the time of discharge. The patient was placed on aspirin in addition to her Coumadin. We stopped her quinapril since her blood pressures were in the 120s range systolically on sotalol alone. There was no evidence of any major large vessel occlusion. From neurologic standpoint, the patient was ready to go to rehab. Her family wanted for the patient to go to [facility] or [facility] and she was accepted to [facility] bed on . She is going to be discharged today there for continuation of her rehabilitation. PHYSICAL EXAM AT THE TIME OF DISCHARGE: Blood pressure of 132/63, heart rate of 86 and regular, respiratory 22, oxygen 98% on room air, temperature 97.2. General: The patient is a very pleasant 89-year-old female who is not in acute distress. The patient is alert and oriented x2. She does not know the exact date. HEENT: Head atraumatic, normocephalic. Eyes: Pupils are equal and reactive to light bilaterally. The patient appears to have mild ophthalmoplegia on the right side. She is unable to abduct her right eye. She complains of double vision during the exam, which improved when her left eye is covered, but "goes away when both eyes are covered." Neck: Supple. No JVD. No bruits bilaterally. On evaluation of the oropharynx, tongue is midline, no deviation. Cardiovascular: Regular rate and rhythm. No murmur. Respiratory: Clear to auscultation bilaterally. Abdomen: Soft, nontender. Bowel sounds present in all quadrants. Extremities: There is no edema. Pulses are +2 bilaterally. No clubbing or cyanosis. Neuro Evaluation: As mentioned above, the patient has problems with abducting her right eye. Complains of diplopia. Tongue is midline. Otherwise, extraocular muscles are grossly intact. Speech is clear and fluent. Motor strength is 5/5 in bilateral upper and lower extremities. She has very minimal dysmetria to [id number] of the left side. She has marked ataxia and she is unable to get up and walk without assistance. She has poor recall. Sensation is grossly intact. Please note that the patient is going to be discharged to [facility] and that is the disposition. Condition at discharge is stable. Please note that this is a short summary of the patient's hospital stay. Please refer to further medical records for details. TIME SPENT: Approximately 45 minutes were spent on preparation of the patient' s discharge. [id number]/[facility] #: [id number] [facility]
== END 2019-10-23 13:44 | DRG 65 ==
LOC: ED 10:53 → MEDTELE 14:12 → OBSVTOIN 10-23 08:34
PROVIDERS: ADMIT Internal Medicine; ATTEND Internal Medicine
DX: I63.89 Other cerebral infarction (principal); I47.2 Ventricular tachycardia; G81.94 Hemiplegia, unspecified affecting left nondominant side; I48.20 Chronic atrial fibrillation, unspecified; H53.2 Diplopia; R27.0 Ataxia, unspecified; R47.1 Dysarthria and anarthria; R47.81 Slurred speech; I10 Essential (primary) hypertension; I09.9 Rheumatic heart disease, unspecified; I69.334 Monoplegia of upper limb following cerebral infarction affecting left non-dominant side; I69.398 Other sequelae of cerebral infarction; Z79.01 Long term (current) use of anticoagulants; Z95.810 Presence of automatic (implantable) cardiac defibrillator; Z95.2 Presence of prosthetic heart valve; Z79.899 Other long term (current) drug therapy
CPT/HCPCS: 36415; 70496; 70498; 80053; 80061; 84484; 85025; 85610; 85730; 86140; 93005; 93306; 99284; A9270-GY; G0378; Q9967